=== PATIENT | female | born 1935 | race Caucasian/White ===

== ENCOUNTER 2016-05-26 07:34 | Emergency (ER) | payer OTHER ==
[~2016-05-26 07:34] MED LIST: ACET500CAP PO; ASAB PO; ATV1 PO; BACDS PO; CARTIA XT240 MG/24 PO; COZAAR100 MG PO; EFFEX75 PO; EFFEXOR XR150 MG PO; ENDOCET1 TAB PO; FIORICET 50-301 EACH PO; K500 PO; LOP25 PO; LOP50 PO; PCET PO; PRILO PO; VITAMIN B PO; XANAX1 MG PO; ZOFRAN4 PO
== END 2016-05-26 08:25 | disposition home or self-care (01) ==
LOC: ER 07:34
DX: F41.9 Anxiety disorder, unspecified (principal); I10 Essential (primary) hypertension; Z88.1 Allergy status to other antibiotic agents; Z79.82 Long term (current) use of aspirin; Z79.899 Other long term (current) drug therapy
CPT/HCPCS: 99283; A9270-GY